=== PATIENT | female | born 1995 | race African-American/Black ===

== ENCOUNTER 2018-09-30 09:30 | Emergency (ER) | payer OTHER ==
[~2018-09-30] VITALS: Ht 162.6 cm; Wt 77.1 kg
[2018-09-30] MEDS ORDERED: CYCLOBENZAPRINE5 MG PO (10:34)
[2018-09-30] MEDS ORDERED: TRAMADOL 50 MG50 MG PO (10:34)
[2018-09-30 10:43] VITALS: BP 125/60
== END 2018-09-30 10:43 | disposition home or self-care (01) ==
LOC: ER 09:30
DX: S20.212A Contusion of left front wall of thorax, initial encounter (principal); S29.012A Strain of muscle and tendon of back wall of thorax, initial encounter; V89.2XXA Person injured in unspecified motor-vehicle accident, traffic, initial encounter; Y93.89 Activity, other specified; Y92.89 Other specified places as the place of occurrence of the external cause; Y99.8 Other external cause status

== ENCOUNTER → 2019-07-06 | Outpatient (CLI) | payer OTHER ==
[~2019-07-06] MED LIST: CYCLOBENZAPRINE5 MG PO; TRAMADOL 50 MG50 MG PO
== END ==
LOC: ULTRA 10:56
DX: D25.1 Intramural leiomyoma of uterus (principal); N92.6 Irregular menstruation, unspecified

== ENCOUNTER → 2019-08-08 | Outpatient (CLI) | payer OTHER | LOC: BC 12:55 | DX: Z12.31 Encounter for screening mammogram for malignant neoplasm of breast (principal) ==